=== PATIENT | male | born 1965 | race Caucasian/White ===

== ENCOUNTER 2017-03-07 15:18 | Outpatient (CLI) | payer MEDICARE ==
[2015-12-06 19:03] VITALS: BP 136/71
[2017-03-07 16:10] LABS: eGFR (African) > 60; eGFR (Non-African) > 60
--- NOTE | 2017-03-07 18:58 | Diagnostic Imaging Report ---
NOE KRISHNA [facility] [address] [facility].[address] [address] Report Submission Date: Mar 07, 2017 3:57:06 PM CDT Patient Study Name: MACARENA RODRÍGUEZ Date: Mar 07, 2017 3:36:19 PM CDT Modality Type: CR Gender: M Description: CHEST : 61 Institution: [facility] Physician: NOE KRISHNA Examination: PA and lateral chest. History: Evaluate lung malik. Comparison exam: None available Findings: PA lateral chest demonstrate a normal cardiac and mediastinal silhouette. No focal infiltrate. No effusion. No blunting of the costophrenic margins. Osseous structures are appropriate for age. Impression: No acute cardiopulmonary process. Given patient's history, consider obtaining CT chest to further evaluate. Electronically signed on Mar 07, 2017 3:57:06 PM CDT by: Diego SALDIVAR
== END 2017-03-07 15:20 ==
LOC: LAB 15:18
PROVIDERS: ATTEND Family Medicine
DX: E11.9 Type 2 diabetes mellitus without complications (principal); I10 Essential (primary) hypertension; R63.4 Abnormal weight loss
CPT/HCPCS: 36415; 71020; 80053; 80061; 82043; 83036; 84439; 84443; 84481

== ENCOUNTER 2017-07-10 11:30 | Outpatient (CLI) | payer MEDICARE ==
[2015-12-06 19:03] VITALS: BP 136/71
[2017-07-10 12:10] LABS: eGFR (African) > 60; eGFR (Non-African) > 60
== END 2017-07-10 11:32 ==
LOC: LAB 11:30
PROVIDERS: ATTEND Family Medicine
DX: E11.9 Type 2 diabetes mellitus without complications (principal)
CPT/HCPCS: 36415; 80053; 82043; 83036

== ENCOUNTER 2017-09-06 14:14 | Outpatient (CLI) | payer MEDICARE ==
[2015-12-06 19:03] VITALS: BP 136/71
[2017-09-06 15:15] LABS: eGFR (African) > 60; eGFR (Non-African) > 60
--- NOTE | 2017-09-06 15:17 | Diagnostic Imaging Report ---
.[facility] [address] [facility] [address] [place], [place]. [address] Report Submission Date: Sep 06, 2017 3:15:19 PM HORTICULTURE WORKER Patient Study Name: MACARENA RODRÍGUEZ Date: Sep 06, 2017 2:24:11 PM HORTICULTURE WORKER Modality Type: DX Gender: M Description: CHEST : 61 Institution: [facility] Physician: NOE KRISHNA Examination: PA and lateral chest. History: Evaluate lung malik. PT STATES COUGH X 1 WEEK, FORMER SMOKER QUIT 20 YEARS AGO (Hx) Comparison exam: None provided. Findings: PA lateral chest demonstrate a normal cardiac and mediastinal silhouette. No focal infiltrate. No blunting of the costophrenic margins. Mild articular degenerative changes. Impression: No acute pulmonary process. Electronically signed on Sep 06, 2017 3:15:19 PM HORTICULTURE WORKER by: Diego SALDIVAR
--- NOTE | 2017-09-06 15:35 | Diagnostic Imaging Report ---
[facility] [address] [facility] [address] [address] Report Submission Date: Sep 06, 2017 3:19:27 PM SOFTWARE DEVELOPER INTERN Patient Study Name: MACARENA RODRÍGUEZ Date: Sep 06, 2017 2:29:46 PM SOFTWARE DEVELOPER INTERN Modality Type: DX Gender: M Description: PELVIS : 61 Institution: [facility] Physician: NOE KRISHNA Examination: Plain film right hip History: PT STATES PAIN AFTER PAIN X 3 WEEKS AGO (Hx) Comparison exams: None provided Findings: 2 views of the right hip demonstrate normal cortical margins. Mild superior acetabular spurring. No fracture no dislocation. No soft tissue abnormality. Impression: Mild degenerative changes. No acute appearing osseous abnormality. Electronically signed on Sep 06, 2017 3:19:27 PM SOFTWARE DEVELOPER INTERN by: Diego SALDIVAR
== END 2017-09-06 14:20 ==
LOC: LAB 14:14
PROVIDERS: ATTEND Family Medicine
DX: M25.551 Pain in right hip (principal); R60.0 Localized edema; E11.9 Type 2 diabetes mellitus without complications
CPT/HCPCS: 36415; 71046; 73502; 80053; 83880

== ENCOUNTER 2017-12-04 17:40 | Emergency (ER) | payer MEDICARE, OTHER ==
--- NOTE | 2017-12-04 18:08 | ED Physician Documentation ---
Lower Extremity Problem - HISTORIAN Historian: patient - HPI Stated Complaint: foot pain Chief Complaint: Lower Extremity Problem Additional Information: 3 days left foot pain. His 110 pound dog jumped on foot and it has been sore since. Abrasions, redness. No treatment attempted. No other associated signs. Diabetic and has regular treatment for callous on right sole. - ROS CONST: no problems - PAST HX Past History: other (DM, histoplasmosis (poor vision)) Allergies/Adverse Reactions: Allergies Allergy/AdvReac Type Severity Reaction Status Date / Time diphenhydramine HCl Allergy Severe Hives Verified 12/04/17 18:39 [From Benadryl] Home Medications: Ambulatory Orders Medication Instructions Recorded Tramadol HCl [Ultram] 100 mg PO BID #120 u2 07/28/12 Cephalexin [Keflex] 500 mg PO Q6 #40 capsule 12/04/17 - SOCIAL HX Smoking History: quit greater than 1 year, cigarettes (20 years ago) - FAMILY HX Family History: no significant history - VITAL SIGNS Vital Signs: Vital Signs Temp Pulse Resp BP Pulse Ox 98.7 F 105 H 16 177/84 95 12/04/17 17:40 12/04/17 17:40 12/04/17 17:40 12/04/17 17:40 12/04/17 17:40 - REVIEWED ASSESSMENTS Nursing Assessment Reviewed: Yes Vitals Reviewed: Yes Progress - Progress Progress: Patient Study Name: MACARENA RODRÍGUEZ Date: Dec 04, 2017 6:12:26 PM CDT Modality Type: DX Gender: M Description: LOWER EXTREMITY : 61 Institution: [facility] Physician: MACO SEGOVIA - ER Right foot 3 views Date of Exam: December 04, 2017. History: RT FOOT, PAIN/ REDNESS IN RT FOOT AFTER BEING STEPPED ON BY A DOG A FEW DAYS AGO (Hx) / ITS.REASON red, DM, dog jumped on foot Findings: No acute fracture or dislocation is identified. There is soft tissue swelling of the forefoot. The tibiotalar alignment is maintained. There are mild degenerative osteoarthritic changes. No radiopaque foreign body is identified. Impression: No acute osseous abnormality. Soft tissue swelling of the forefoot. Electronically signed on Dec 04, 2017 7:10:39 PM CDT by: Blessing Hernandez ED Results Lab/Radiology - Orders Orders: ED Orders Category Date Time Status FOOT 3 VIEWS OR MORE [RAD] Stat Exams 12/04/17 Ordered Lower Extremity Problem - EXAM General Appearance: mild distress Legs: bilateral: normal inspection, no evidence of injury Knees: bilateral: normal inspection, no evidence of injury Ankle: bilateral: normal inspection, no evidence of injury Foot: right foot: abrasions/lacerations (toe and distal foot. 1.5 cm callous right sole, proximal to 3rd MCP), swelling (3-4 cm area erythema dorsal foot, tender to palpation in this area and some swelling. DP and PT 1+) Neuro/Tendon: normal motor functions, normal tendon functions, responds to pain EENT: eye inspection normal, pharynx normal RESPIRATORY: no resp distress, breath sounds normal CVS: reg rate & rhythm, heart sounds normal JOINT: antalgic gait VASCULAR: no vascular compromise NEURO/PSYCH: CN's nml as tested, motor nml, sensation nml SKIN: warm/dry, normal color (except as above) BACK: normal inspection Discharge Clincal Impression: Cellulitis of foot Referrals: Peter Henry MD [Primary Care Provider] - 2 Days Additional Instructions: Your antibiotic prescription is at [facility]. Return to the ER or see your provider if you are not getting better in 48 hours. See your provider or return to the ER if your condition worsens. Your x-rays did not show any infection in the bones of your foot. Condition: Fair Disposition: 01 HOME, SELF-CARE Decision to Admit: NO Decision Time: 19:15
[2017-12-04] MEDS: Lidocaine 1% 5ml(IM or SUTURE)(PAIN CLINIC) IJ ONE (19:28)
[2017-12-04] MEDS: cefTRIAXone SODIUM 1 GM VIAL IM ONE (19:28)
[2017-12-04 19:47] VITALS: BP 168/72
--- NOTE | 2017-12-04 19:53 | Diagnostic Imaging Report ---
[facility] [address] [facility].[address] [address] Report Submission Date: Dec 04, 2017 7:10:39 PM CDT Patient Study Name: MACARENA RODRÍGUEZ Date: Dec 04, 2017 6:12:26 PM CDT Modality Type: DX Gender: M Description: LOWER EXTREMITY : 61 Institution: [facility] Physician: MACO SEGOVIA Right foot 3 views Date of Exam: December 04, 2017. History: RT FOOT, PAIN/ REDNESS IN RT FOOT AFTER BEING STEPPED ON BY A DOG A FEW DAYS AGO (Hx) / ITS.REASON red, DM, dog jumped on foot Findings: No acute fracture or dislocation is identified. There is soft tissue swelling of the forefoot. The tibiotalar alignment is maintained. There are mild degenerative osteoarthritic changes. No radiopaque foreign body is identified. Impression: No acute osseous abnormality. Soft tissue swelling of the forefoot. Electronically signed on Dec 04, 2017 7:10:39 PM CDT by: Blessing SALDIVAR
== END 2017-12-04 19:40 | disposition home or self-care (01) ==
LOC: ED 17:40
DX: L03.115 Cellulitis of right lower limb (principal)
CPT/HCPCS: 73630; J0696; 96372; 99284

== ENCOUNTER 2018-01-18 14:01 | Emergency (ER) | payer MEDICARE, OTHER ==
--- NOTE | 2018-01-18 14:15 | ED Physician Documentation ---
General Adult - HISTORIAN Historian: patient - HPI Stated Complaint: skin concern for over two weeks Chief Complaint: General Adult Onset: other ("almost two weeks" ) Timing: still present Severity: moderate Further Comments: yes (He states he "gets boils all the time" and that this area has had " a boil before but they usually pop and drainge comes out" this one has been on this area for almost two weeks. He denies any drainage. he does have tenderness. No fever. His blood sugar this am was was 300 or more. He denies any other complaints.) Last known Well Code/Unknown Code: Unknown - ROS CONST: no problems EYES/ENT: none CVS/RESP: denies: chest pain, shortness of breath GI/: denies: abdominal pain, vomiting, nausea MS/SKIN/LYMPH: other (skin abcess ) NEURO/PSYCH: denies: headache, dizziness - PAST HX Past History: other Other History: diabetes Type 2 Immunizations: UTD Allergies/Adverse Reactions: Allergies Allergy/AdvReac Type Severity Reaction Status Date / Time diphenhydramine HCl Allergy Severe Hives Verified 01/18/18 14:33 [From Benadryl] Home Medications: Ambulatory Orders Medication Instructions Recorded Tramadol HCl [Ultram] 100 mg PO BID #120 u2 07/28/12 - SOCIAL HX Smoking History: cigarettes Alcohol Use: none Drug Use: none - FAMILY HX Family History: No - VITAL SIGNS Vital Signs: Vital Signs Temp Pulse Resp BP Pulse Ox 168/72 12/04/17 19:40 - REVIEWED ASSESSMENTS Nursing Assessment Reviewed: Yes Vitals Reviewed: Yes Progress - Progress Progress: 1500: lab discussed. Due to not controlled blood sugars we will avoid opening area. he is agreeable DG General Adult Physical Exam - PHYSICAL EXAM GENERAL APPEARANCE: no distress EENT: eye inspection normal NECK: normal inspection RESPIRATORY: no resp distress, chest non-tender, breath sounds normal CVS: reg rate & rhythm, heart sounds normal, equal pulses, no murmur ABDOMEN: soft, normal bowel sounds BACK: normal inspection, no CVA tenderness SKIN: warm/dry, other (raised area on posterior of left leg red raised some skin sloughing and crusting and measures 8 cm in circular size ) EXTREMITIES: non-tender, normal range of motion, no evidence of injury, no edema NEURO: oriented X3, CN's nml as tested, motor nml, sensation nml, mood/affect nml, cognition normal Discharge Clincal Impression: Abscess Referrals: Peter Hnery MD [Primary Care Provider] - 2 Days Additional Instructions: 1. Bactrim DS take 1 by mouth BID X 10 days 2. Tylenol or Ibuprofen as needed for pain as directed 3. Keep area clean 4. Warm pack 5. See Dr Henry Saturday for possible U/S if no improvement 6. Return to ER for increase pain, drainage or fever or other concerns Condition: Stable Disposition: 01 HOME, SELF-CARE Decision to Admit: NO Date of Decison to Admit: 01/18/18 Decision Time: 15:12
[2018-01-18 14:59] LABS: BASOPHILS % 0.5 (0.0-1.5); EOSINOPHILS % 1.1 % (0.0-6.8); MEAN CORPUSCULAR HEMOGLOBIN 29.8 pg (28.0-34.0); MEAN CORPUSCULAR VOLUME 90.8 fl (80.0-100.0); MONOCYTES % 4.7 % (0.0-11.0); NEUTROPHILS # 4.9 # k/uL (1.4-7.7)
[2018-01-18 15:38] LABS: eGFR (African) > 60; eGFR (Non-African) > 60
[2018-01-18 16:12] VITALS: BP 138/80
== END 2018-01-18 15:40 | disposition home or self-care (01) ==
LOC: ED 14:01
DX: L02.91 Cutaneous abscess, unspecified (principal)
CPT/HCPCS: 80053; 85025; 99283; S1016

== ENCOUNTER 2018-01-20 16:11 | Outpatient (CLI) | payer MEDICARE | END 2018-01-20 16:12 | LOC: LABRHC 16:11 | PROVIDERS: ATTEND Family Medicine | DX: L02.416 Cutaneous abscess of left lower limb (principal); E11.9 Type 2 diabetes mellitus without complications | CPT/HCPCS: 87070 ==